=== PATIENT | female | born 1985 | race Caucasian/White ===

== ENCOUNTER 2017-04-27 13:35 | Emergency (ER) | payer OTHER ==
[~2017-04-27] VITALS: Ht 165.1 cm; Wt 61.2 kg
[~2017-04-27 13:35] MED LIST: ALBUTEROL0.09 MG/AC IH; ATARAX25 MG PO; BIAXIN500 MG PO; BUPROBAN150 MG PO; CILOXAN 5 ML5 M1 OP; CIPRODEX 0.3%-7.5 ML OT; CLARITIN10 MG PO; COMPAZINE10 MG PO; FLONASE0.05 MG/AC NS; FLOVENT 110 M110 MCG INH; Fioricet 325 MG1 TAB PO; LIDEX0.05% T; LOESTRIN 21 1/21 TAB PO; MACROBID100 M1 PO; MECLIZINE25 MG PO; MIRALAX POWDER255 GM PO; NAPROXEN500 MG PO; OYSTER CALCIUM/1 TA1 PO; PRILOSEC20 M1 PO; PROPRANOLOL ER80 MG PO; PROVENTIL0.09 MG/AC IH; REPLAX PO; TRAMADOL HCL50 MG PO; TRAZODONE50 MG PO; VENTOLIN H0.09 MG/AC INH; ZOLOFT100 MG PO; ZYRTEC10 MG PO
[2017-04-27 13:43] VITALS: BP 108/66
[2017-04-27] MEDS ORDERED: NAPROSYN500 MG PO (15:43)
== END 2017-04-27 15:49 | disposition home or self-care (01) ==
LOC: ED 13:35
DX: S93.402A Sprain of unspecified ligament of left ankle, initial encounter (principal); F17.200 Nicotine dependence, unspecified, uncomplicated; Z88.1 Allergy status to other antibiotic agents; Z79.899 Other long term (current) drug therapy; X58.XXXA Exposure to other specified factors, initial encounter; Y93.89 Activity, other specified; Y92.89 Other specified places as the place of occurrence of the external cause; Y99.8 Other external cause status

== ENCOUNTER 2017-06-18 10:53 | Emergency (ER) | payer OTHER ==
[~2017-06-18] VITALS: Ht 167.6 cm; Wt 65.8 kg
[~2017-06-18 10:53] MED LIST changes: +NAPROSYN500 MG PO
[2017-06-18 11:22] VITALS: BP 128/60
[2017-06-18] MEDS ORDERED: NORCO 5-325 TA1 EACH PO (11:58)
[2017-06-18] MEDS ORDERED: SEPTDS PO (12:20)
[2017-06-18] MEDS ORDERED: CEPHALEXIN500 M1 PO (12:20)
== END 2017-06-18 13:30 | disposition home or self-care (01) ==
LOC: ED 10:53
DX: L02.413 Cutaneous abscess of right upper limb (principal); F17.200 Nicotine dependence, unspecified, uncomplicated; Z88.1 Allergy status to other antibiotic agents; Z79.899 Other long term (current) drug therapy

== ENCOUNTER → 2017-06-19 | Outpatient (CLI) | payer OTHER ==
[~2017-06-19] MED LIST changes: +CEPHALEXIN500 M1 PO; +NORCO 5-325 TA1 EACH PO; +SEPTDS PO
== END | disposition home or self-care (01) ==
LOC: WOUNDCARE 03:28
DX: L02.413 Cutaneous abscess of right upper limb (principal); F17.210 Nicotine dependence, cigarettes, uncomplicated; L03.113 Cellulitis of right upper limb; L72.0 Epidermal cyst

== ENCOUNTER → 2017-06-23 | Outpatient (CLI) | payer OTHER | END | disposition home or self-care (01) | LOC: WOUNDCARE 11:37 | DX: L02.413 Cutaneous abscess of right upper limb (principal); L72.0 Epidermal cyst; F17.210 Nicotine dependence, cigarettes, uncomplicated ==

== ENCOUNTER → 2017-06-30 | Outpatient (CLI) | payer OTHER | END | disposition home or self-care (01) | LOC: WOUNDCARE 10:30 | DX: L02.413 Cutaneous abscess of right upper limb (principal); L72.0 Epidermal cyst; F17.210 Nicotine dependence, cigarettes, uncomplicated ==

== ENCOUNTER → 2017-07-08 | Outpatient (CLI) | payer OTHER | END | disposition home or self-care (01) | LOC: WOUNDCARE 01:45 | DX: L03.113 Cellulitis of right upper limb (principal); L72.0 Epidermal cyst; F17.210 Nicotine dependence, cigarettes, uncomplicated ==

== ENCOUNTER 2021-03-20 15:08 | Emergency (ER) | payer OTHER ==
[~2021-03-20] VITALS: Wt 75.7 kg
[2021-03-20 15:16] VITALS: BP 154/82
[2021-03-20] MEDS ORDERED: CYCLOBENZAPRINE5 M3 PO (17:35)
[2021-03-20] MEDS ORDERED: Motrin,Rufen800 MG PO (17:35)
== END 2021-03-20 17:48 | disposition home or self-care (01) ==
LOC: ED 15:08
DX: S33.5XXS Sprain of ligaments of lumbar spine, sequela (principal); M62.830 Muscle spasm of back; M54.6 Pain in thoracic spine; Z88.1 Allergy status to other antibiotic agents; Z79.899 Other long term (current) drug therapy; Z79.2 Long term (current) use of antibiotics; V43.52XA Car driver injured in collision with other type car in traffic accident, initial encounter; Y93.I9 Activity, other involving external motion; Y92.488 Other paved roadways as the place of occurrence of the external cause; Y99.8 Other external cause status

== ENCOUNTER → 2021-07-27 | Outpatient (CLI) | payer OTHER ==
[~2021-07-27] MED LIST changes: +CYCLOBENZAPRINE5 M3 PO; +Motrin,Rufen800 MG PO
== END | disposition home or self-care (01) ==
LOC: US 00:10
PROVIDERS: ATTEND Internal Medicine
DX: R11.2 Nausea with vomiting, unspecified (principal)

== ENCOUNTER → 2022-09-12 | Outpatient (CLI) | payer OTHER | END | disposition home or self-care (01) | LOC: RAD 11:12 | PROVIDERS: ATTEND Internal Medicine | DX: M54.50 Low back pain, unspecified (principal) ==

== ENCOUNTER 2023-02-14 15:11 | Emergency (ER) | payer OTHER ==
[~2023-02-14] VITALS: Ht 165.1 cm; Wt 65.8 kg
[2023-02-14 16:08] VITALS: BP 118/67
[2023-02-14 16:55] LABS: BASO # 0.1 10*3/uL (0.0-0.1); BASO % 0.4 % (0.0-1.0); EOS # 0.1 10*3/uL (0.0-0.4); EOS % 0.6 % (1.0-4.0); HEMATOCRIT 42.3 % (37.0-47.0); LYMPH # 2.1 10*3/uL (1.3-4.4); LYMPH % 14.5 % (27.0-41.0); MEAN CELL VOLUME 95.7 fl (81.0-99.0); MEAN CORPUSCULAR HGB CONC 32.4 g/dl (33.0-37.0); MEAN PLATELET VOLUME 10.5 fl (9.6-12.3); MONO # 0.9 10*3/uL (0.1-1.0); MONO % 6.5 % (3.0-9.0); NEUT # 11.1 10*3/uL (2.3-7.9); NEUT % 77.8 % (47.0-73.0); PLATELET COUNT AUTOMATED 273 10*3/uL (130-400); RED BLOOD COUNT 4.42 10*6/uL (4.10-5.10); RED CELL DISTRI WIDTH 13.9 % (0-14.5); WHITE BLOOD COUNT 14.3 10*3/uL (4.8-10.8)
[2023-02-14 17:07] LABS: ACT PARTIAL THROMBO TIME 30.4 SECONDS (20.0-32.1)
[2023-02-14 17:23] LABS: ALKALINE PHOSPHATASE 52 U/L (46-116); BUN 10 mg/dl (9-23); CHLORIDE 108 mmol/L (98-107); LIPASE 28 U/L (12-53); POTASSIUM 3.7 mmol/L (3.4-5.1); SGPT/ALT 8 U/L (10-49); TOTAL PROTEIN 7.6 gm/dL (6.0-8.0)
[2023-02-14 17:24] LABS: BETA-HCG, QUANT < 3.0 mIU/mL (3-10)
[2023-02-14 17:40] LABS: BILIRUBIN Negative (Negative); BLOOD 3+ (Negative); CLARITY Clear (Clear); COLOR Yellow (Yellow); GLUCOSE Negative (Negative); KETONE Trace (Negative); LEUKO ESTERASE Negative (Negative); NITRITE Negative (Negative); PH 5.5 (4.5-8.0); UROBILINOGEN 0.2 E.U./dl (0.0-1.0)
[2023-02-14 17:48] LABS: BACTERIA 2+; MUCOUS 2+
== END 2023-02-14 20:09 | disposition home or self-care (01) ==
LOC: ED 15:11
PROVIDERS: Emergency Medicine
DX: R55 Syncope and collapse (principal); G43.909 Migraine, unspecified, not intractable, without status migrainosus; D72.829 Elevated white blood cell count, unspecified; F12.90 Cannabis use, unspecified, uncomplicated; Z79.899 Other long term (current) drug therapy; Z79.2 Long term (current) use of antibiotics

== ENCOUNTER 2024-10-09 14:40 | Emergency (ER) | payer SELFPAY ==
[~2024-10-09] VITALS: Ht 165.1 cm; Wt 65.8 kg
[2024-10-09] MEDS ORDERED: SODIUM CHLORIDE 0.9% 1,000 ML IV ONE (14:55)
[2024-10-09] MEDS ORDERED: Clindamycin Phosphate 50 ML IV ONE (14:55)
[2024-10-09 14:56] VITALS: BP 137/74
[2024-10-09] MEDS ORDERED: methylPREDNISolone sod succ 125 MG VIAL IV ONE (15:00)
[2024-10-09] MEDS ORDERED: FAMOTIDINE 50 ML IV ONE (15:00)
[2024-10-09] MEDS ORDERED: diphenhydrAMINE hydrochloride 50 MG/ML VIAL IV ONE (15:00)
[2024-10-09 15:07] LABS: BASO # 0.1 10*3/uL (0.0-0.1); BASO % 0.7 % (0.0-1.0); EOS # 0.8 10*3/uL (0.0-0.4); EOS % 5.7 % (1.0-4.0); HEMATOCRIT 41.1 % (37.0-47.0); MEAN CELL VOLUME 90.9 fl (81.0-99.0); MEAN CORPUSCULAR HGB 30.5 pg (27.0-31.0); MEAN CORPUSCULAR HGB CONC 33.6 g/dl (33.0-37.0); MEAN PLATELET VOLUME 10.6 fl (9.6-12.3); MONO # 0.9 10*3/uL (0.1-1.0); MONO % 6.7 % (3.0-9.0); NEUT # 8.8 10*3/uL (2.3-7.9); NEUT % 64.6 % (47.0-73.0); PLATELET COUNT AUTOMATED 283 10*3/uL (130-400); RED BLOOD COUNT 4.52 10*6/uL (4.10-5.10); RED CELL DISTRI WIDTH 13.6 % (0-14.5); WHITE BLOOD COUNT 13.7 10*3/uL (4.8-10.8)
[2024-10-09 15:22] LABS: BUN 13 mg/dl (9-23); CHLORIDE 104 mmol/L (98-107)
[2024-10-09] MEDS ORDERED: PREDNISONE20 M1 PO (17:03)
[2024-10-09] MEDS ORDERED: CLINDAMYCIN HC300 MG PO (17:03)
== END 2024-10-09 17:33 | disposition home or self-care (01) ==
LOC: ED 14:40
PROVIDERS: Nurse Practitioner Family
DX: T78.49XA Other allergy, initial encounter (principal); H60.11 Cellulitis of right external ear; Z88.1 Allergy status to other antibiotic agents; X58.XXXA Exposure to other specified factors, initial encounter

== ENCOUNTER 2025-01-25 14:07 | Emergency (ER) | payer SELFPAY ==
[~2025-01-25] VITALS: Ht 165.1 cm; Wt 65.8 kg
[~2025-01-25 14:07] MED LIST changes: +CLINDAMYCIN HC300 MG PO; +PREDNISONE20 M1 PO
[2025-01-25 14:13] VITALS: BP 129/78
[2025-01-25] MEDS ORDERED: IOHEXOL 300 MG/ML 100 ML VIAL IV ONE (14:30)
[2025-01-25] MEDS ORDERED: Clindamycin Phosphate 50 ML IV ONE (14:30)
[2025-01-25 14:42] LABS: BASO % 0.3 % (0.0-1.0); EOS # 0.1 10*3/uL (0.0-0.4); EOS % 0.8 % (1.0-4.0); HEMATOCRIT 35.4 % (37.0-47.0); MEAN CELL VOLUME 89.8 fl (81.0-99.0); MEAN CORPUSCULAR HGB 30.5 pg (27.0-31.0); MEAN CORPUSCULAR HGB CONC 33.9 g/dl (33.0-37.0); MEAN PLATELET VOLUME 10.4 fl (9.6-12.3); MONO # 1.4 10*3/uL (0.1-1.0); MONO % 10.2 % (3.0-9.0); NEUT # 9.1 10*3/uL (2.3-7.9); NEUT % 68.8 % (47.0-73.0); PLATELET COUNT AUTOMATED 229 10*3/uL (130-400); RED BLOOD COUNT 3.94 10*6/uL (4.10-5.10); RED CELL DISTRI WIDTH 13.4 % (0-14.5); WHITE BLOOD COUNT 13.2 10*3/uL (4.8-10.8)
[2025-01-25] MEDS ORDERED: IOHEXOL 300 MG/ML 100 ML VIAL ONE (14:48)
[2025-01-25 15:00] LABS: BUN 16 mg/dl (9-23); CHLORIDE 104 mmol/L (98-107); POTASSIUM 3.8 mmol/L (3.4-5.1)
[2025-01-25] MEDS ORDERED: CLINDAMYCIN HC300 MG PO (17:03)
[2025-01-25] MEDS ORDERED: ACETAMINOPHEN 325 MG TAB PO ONE (17:10)
[2025-01-25] MEDS ORDERED: IBUPROFEN 800 MG TAB PO ONE (17:10)
[2025-01-25] MEDS ORDERED: IBU800 M1 PO (17:12)
[2025-01-25] MEDS ORDERED: TYLENOL325 M2 PO (17:12)
== END 2025-01-25 17:09 | disposition home or self-care (01) ==
LOC: ED 14:07
PROVIDERS: Nurse Practitioner
DX: K04.7 Periapical abscess without sinus (principal); J45.909 Unspecified asthma, uncomplicated; K21.9 Gastro-esophageal reflux disease without esophagitis; F32.A Depression, unspecified; F41.9 Anxiety disorder, unspecified; Z79.899 Other long term (current) drug therapy; Z88.1 Allergy status to other antibiotic agents

== ENCOUNTER 2025-07-03 02:42 | Emergency (ER) | payer SELFPAY ==
[~2025-07-03] VITALS: Ht 165.1 cm; Wt 65.8 kg
[~2025-07-03 02:42] MED LIST changes: +IBU800 M1 PO; +TYLENOL325 M2 PO
[2025-07-03 02:50] VITALS: BP 137/85
[2025-07-03] MEDS ORDERED: Cyclobenzaprine Hydrochlorid 10 MG TAB PO ONE (03:05)
[2025-07-03] MEDS ORDERED: Dexamethasone Sodium Phospha 20 MG/5 ML VIAL IM ONE (03:10)
[2025-07-03] MEDS ORDERED: CYCLOBENZAPRINE10 MG PO (04:09)
== END 2025-07-03 04:18 | disposition home or self-care (01) ==
LOC: ED 02:42
DX: M62.838 Other muscle spasm (principal); J45.909 Unspecified asthma, uncomplicated; F41.9 Anxiety disorder, unspecified; F32.A Depression, unspecified; K21.9 Gastro-esophageal reflux disease without esophagitis; Z88.1 Allergy status to other antibiotic agents

== ENCOUNTER 2025-07-11 17:11 | Emergency (ER) | payer SELFPAY ==
[~2025-07-11] VITALS: Ht 165.1 cm; Wt 65.8 kg
[~2025-07-11 17:11] MED LIST changes: +CYCLOBENZAPRINE10 MG PO
[2025-07-11 17:17] VITALS: BP 119/73
[2025-07-11 18:33] LABS: BASO # 0.1 10*3/uL (0.0-0.1); BASO % 0.6 % (0.0-1.0); EOS # 0.2 10*3/uL (0.0-0.4); EOS % 2.2 % (1.0-4.0); MEAN CELL VOLUME 90.8 fl (81.0-99.0); MEAN CORPUSCULAR HGB 30.3 pg (27.0-31.0); MEAN PLATELET VOLUME 10.7 fl (9.6-12.3); MONO # 0.9 10*3/uL (0.1-1.0); MONO % 8.0 % (3.0-9.0); NEUT # 6.6 10*3/uL (2.3-7.9); NEUT % 60.1 % (47.0-73.0); NUCLEATED RED BLOOD CELL 0.0 % (0.0-0.0); NUCLEATED RED BLOOD CELL 0.0 10*3/uL (0.0-0.0); PLATELET COUNT AUTOMATED 254 10*3/uL (130-400); RED CELL DISTRI WIDTH 13.7 % (0-14.5)
[2025-07-11] MEDS ORDERED: METHOCARBAMOL 500 MG TAB PO ONE (18:40)
[2025-07-11 18:55] LABS: BUN 13 mg/dl (9-23)
[2025-07-11] MEDS ORDERED: PREDNISONE50 MG PO (20:00)
[2025-07-11] MEDS ORDERED: METHOCARBAMOL500 M1 PO (20:00)
== END 2025-07-11 20:07 | disposition home or self-care (01) ==
LOC: ED 17:11
PROVIDERS: Nurse Practitioner Family
DX: S16.1XXA Strain of muscle, fascia and tendon at neck level, initial encounter (principal); M54.2 Cervicalgia; F17.200 Nicotine dependence, unspecified, uncomplicated; Z88.1 Allergy status to other antibiotic agents; Z79.899 Other long term (current) drug therapy; X50.0XXA Overexertion from strenuous movement or load, initial encounter; Y93.89 Activity, other specified; Y92.89 Other specified places as the place of occurrence of the external cause; Y99.8 Other external cause status

== ENCOUNTER 2025-07-25 20:17 | Emergency (ER) | payer SELFPAY ==
[~2025-07-25] VITALS: Wt 78.9 kg
[~2025-07-25 20:17] MED LIST changes: +METHOCARBAMOL500 M1 PO; +PREDNISONE50 MG PO
[2025-07-25] MEDS ORDERED: Ondansetron Hydrochloride 4 MG/2 ML VIAL IV ONE (20:25)
[2025-07-25] MEDS ORDERED: SODIUM CHLORIDE 0.9% 1,000 ML IV ONE (20:25)
[2025-07-25 20:45] LABS: BASO # 0.1 10*3/uL (0.0-0.1); BASO % 0.3 % (0.0-1.0); EOS # 0.1 10*3/uL (0.0-0.4); EOS % 0.6 % (1.0-4.0); MEAN CELL VOLUME 90.6 fl (81.0-99.0); MEAN CORPUSCULAR HGB 30.2 pg (27.0-31.0); MEAN PLATELET VOLUME 10.6 fl (9.6-12.3); MONO # 1.2 10*3/uL (0.1-1.0); MONO % 6.0 % (3.0-9.0); NEUT # 15.8 10*3/uL (2.3-7.9); NEUT % 79.0 % (47.0-73.0); NUCLEATED RED BLOOD CELL 0.0 % (0.0-0.0); NUCLEATED RED BLOOD CELL 0.0 10*3/uL (0.0-0.0); PLATELET COUNT AUTOMATED 296 10*3/uL (130-400); RED CELL DISTRI WIDTH 14.0 % (0-14.5)
[2025-07-25 21:00] LABS: BILIRUBIN 1+ (Negative); BLOOD Negative (Negative); CLARITY Clear (Clear); COLOR Dark Yellow (Yellow); KETONE Negative (Negative); LEUKO ESTERASE Negative (Negative); MUCOUS 2+; NITRITE Negative (Negative); PH 6.5 (4.5-8.0); RBC 0-2 rbc/hpf (0-2); SPECIFIC GRAVITY 1.020 (1.001-1.030); UROBILINOGEN 0.2 E.U./dl (0.0-1.0)
[2025-07-25 21:03] LABS: BUN 11 mg/dl (9-23)
[2025-07-25] MEDS ORDERED: Ondansetron4 MG PO (21:59)
[2025-07-25 22:13] VITALS: BP 120/72
== END 2025-07-25 22:15 | disposition home or self-care (01) ==
LOC: ED 20:17
PROVIDERS: Internal Medicine
DX: I95.1 Orthostatic hypotension (principal); R11.2 Nausea with vomiting, unspecified; D72.829 Elevated white blood cell count, unspecified; J45.909 Unspecified asthma, uncomplicated; F41.9 Anxiety disorder, unspecified; F32.A Depression, unspecified; K21.9 Gastro-esophageal reflux disease without esophagitis; Z88.1 Allergy status to other antibiotic agents